=== PATIENT | female | born 1950 | race Caucasian/White ===

== ENCOUNTER → 2016-10-30 10:39 | Outpatient (CLI) | payer MEDICARE, BC | END | disposition home or self-care (01) | LOC: D.MRI 10-29 08:30 | DX: R53.1 Weakness (principal); R20.0 Anesthesia of skin ==

== ENCOUNTER → 2017-01-29 08:35 | Outpatient (CLI) | payer MEDICARE, BC ==
--- NOTE | ~2017-01-29 | EMG ---
PATIENT:JASON GRIDER DATE OF SERVICE: 01/29/17 MEDICAL RECORD: [id number] DATE OF : 50 LOCATION: [facility] ADMISSION DATE: REFERRING PHYSICIAN: BITA MEJIA MD INTERPRETING PHYSICIAN: SERA GALEANO MD DATE OF SERVICE: 01/29/2017 Electroencephalographic Report. REFERRED BY: Dr. Mejia as an outpatient. DATE OF : 1950. DATE OF EXAMINATION: 01/29/2017. ELECTROMYOGRAPHIC DATA: Electromyographic examination is limited to both lower extremities, but it is also limited to the nerve conduction studies only as the patient is actively on Eliquis daily. In the right lower extremity, right peroneal motor stimulation elicits a compound motor action potential with a distal latency of 3.8 milliseconds, peak amplitude of 2 millivolts and calculated conduction velocity of 35 meters per second. Right tibial motor stimulation elicits a compound motor action potential with a distal latency of 6.8 milliseconds, peak amplitude of 40 microvolts. Proximal stimulation does not elicit a reliable response. A calculated conduction velocity is not therefore obtained. Antidromic right sural sensory stimulation elicits a response with a distal latency of 2.9 milliseconds, amplitude of 9 microvolts. Once again, proximal stimulation does not elicit a reliable response. The calculated conduction velocity for the distal segment is 34 meters per second. The right lower extremity H reflex recording at gastrocsoleus is absent. In the left lower extremity, left peroneal motor stimulation elicits a compound motor action potential with a distal latency of 4.1 milliseconds, peak amplitude of only 2 millivolts and calculated conduction velocity of 41 meters per second. Left tibial motor stimulation elicits a compound motor action potential with a distal latency of 6.5 milliseconds and peak amplitude of only 300 microvolts. Once again, proximal stimulation does not elicit a reliable response. The calculated conduction velocity is not therefore obtained. Antidromic left sural sensory stimulation elicits a response with a distal latency of 3.3 milliseconds, amplitude of 1 microvolts and calculated conduction velocity of 19 meters per second. The left lower extremity H reflex recording at gastrocsoleus is absent. Needle electrode examination is not performed at this time. INTERPRETATION: Electromyographic examination of both lower extremities, limited to the nerve conduction studies only as the patient is currently on anticoagulation with Eliquis, is indicative of a diffuse disorder of the lower motor neuron in both lower extremities, moderately severe in degree electrically, consistent with the diagnosis of a sensory motor peripheral polyneuropathy. 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
== END | disposition home or self-care (01) ==
LOC: D.CN 12-03 08:00
DX: R53.1 Weakness (principal); R20.0 Anesthesia of skin